=== PATIENT | male | born 1950 | race Caucasian/White ===

== ENCOUNTER 2020-01-14 16:19 | Emergency (ER) | payer SELFPAY ==
[~2020-01-14] VITALS: Ht 185.4 cm; Wt 91.6 kg
[2020-01-14] MEDS ORDERED: SODIUM CHLORIDE FLUSH 10ML SYR IVF ONE (17:00)
--- NOTE | 2020-01-14 17:16 | NUR ---
TRIED CALLING PT BACK FOR EKG, NO RESPONSE.
--- NOTE | 2020-01-14 17:24 | NUR ---
Pt currently in [place]. [facility] will room pt to room 9 when study is complete.
[2020-01-14 18:17] LABS: BASOPHILS # (AUTO) 0.02 x10^3/uL (0-0.1); BASOPHILS % (AUTO) 0 % (0-1); EOSINOPHILS # (AUTO) 0.01 x10^3/uL (0-0.4); EOSINOPHILS % (AUTO) 0 % (1-7); LYMPHOCYTES # (AUTO) 1.24 x10^3/uL (1-3.4); LYMPHOCYTES % (AUTO) 11 % (22-44); MD NO; MEAN CORPUSCULAR HEMOGLOBIN 28.8 pg (27.5-34.5); MEAN CORPUSCULAR HGB CONC 32.7 g/dL (33.2-36.2); MEAN CORPUSCULAR VOLUME 87.8 fL (81-97); MEAN PLATELET VOLUME 7.1 fL (7.4-10.4); MONOCYTES # (AUTO) 0.49 x10^3/uL (0.2-0.8); MONOCYTES % (AUTO) 4 % (2-9); NEUTROPHILS # (AUTO) 9.47 x10^3/uL (1.8-6.8); NEUTROPHILS % (AUTO) 84 % (42-75); PLATELET COUNT 316 x10^3/uL (130-400); RED BLOOD COUNT 5.26 x10^6/uL (4.38-5.82); RED CELL DISTRIBUTION WIDTH 13.5 % (9.4-14.8)
[2020-01-14 18:26] LABS: ANION GAP 9 mmol/L (5-15); CALCIUM 9.3 mg/dL (8.5-10.1); CHLORIDE 107 mmol/L (98-107)
[2020-01-14] MEDS ORDERED: SODIUM CHLORIDE 0.9% 1,000ML IVBOLUS ONE (18:30)
[2020-01-14] MEDS ORDERED: ONDANSETRON 2MG/ML, 2ML IVPush ONE (18:30)
[2020-01-14] MEDS ORDERED: FAMOTIDINE 20 MG/2 ML IV ONE (18:30)
[2020-01-14 18:31] LABS: ALANINE AMINOTRANSFERASE 42 U/L (12-78); ALKALINE PHOSPHATASE 53 U/L (45-117); BILIRUBIN,TOTAL 0.5 mg/dL (0.2-1.0); CREATININE 0.87 mg/dL (0.7-1.3); TOTAL PROTEIN 8.1 g/dL (6.4-8.2)
[2020-01-14 18:34] LABS: TROPONIN I < 0.015 ng/mL (0.000-0.045)
[2020-01-14] MEDS ORDERED: ONDANSETRON 2MG/ML, 2ML ONE (18:41)
[2020-01-14] MEDS ORDERED: FAMOTIDINE 20 MG/2 ML ONE (18:42)
[2020-01-14 18:45] VITALS: BP 180/83
--- NOTE | 2020-01-14 18:49 | NUR ---
TASK RN NOTE: PT REPORTS SLIGHT DECREASE FROM PAIN, REFLECTED IN VS. PT MOVES SELF UP IN BED FOR COMFORT. AT BEDSIDE. AWAITING RESULTS.
[2020-01-14 19:44] LABS: MICROSCOPIC NOT IND
[2020-01-14] MEDS ORDERED: ACETAMINOPHEN 500 MG TABLET ONE (19:55)
[2020-01-14] MEDS ORDERED: ACETAMINOPHEN 500 MG TABLET PO ONE (20:00)
[2020-01-14] MEDS ORDERED: OMNIPAQUE 350 MG/ML, 100ML BOTTLE ONE (21:30)
== END 2020-01-14 21:48 | disposition home or self-care (01) ==
LOC: ED 21:45
DX: R11.2 Nausea with vomiting, unspecified (principal); E86.0 Dehydration; R10.10 Upper abdominal pain, unspecified; R06.02 Shortness of breath; R94.31 Abnormal electrocardiogram [ECG] [EKG]; I10 Essential (primary) hypertension; E11.9 Type 2 diabetes mellitus without complications; Z87.891 Personal history of nicotine dependence
CPT/HCPCS: 36415; 74177; 76700; 80053; 81003; 83690; 84484; 85025; 93005; 96361; 96374; 96375; 99285; J2405; J3490; J7030; Q9967